=== PATIENT | female | born 1990 | race Caucasian/White ===

== ENCOUNTER 2019-01-05 17:13 | Emergency (ER) | payer MEDICAID ==
[~2019-01-05] VITALS: Ht 157.5 cm; Wt 54.4 kg
[2019-01-05 17:20] VITALS: BP 153/89
--- NOTE | 2019-01-05 17:55 | PHYS DOC ---
Past Medical History Past Medical History: No Pertinent History Past Surgical History: No Surgical History Alcohol Use: Occasionally Drug Use: Marijuana, Phencyclidine Adult General Chief Complaint Chief Complaint: DRUG ABUSE HPI HPI 28-year-old female presents to ER via EMS from her work place following an episode where she had altered mental status per staff. EMS had denied any altered MS or uncontrollable/agitated/anxious behavior. On arrival patient is A&Ox3. Reports she had smoked PCP just prior to altered mental status. She states she has done this in the past. She is denying headache, dizziness, chest pain, or palpitations. Patient reports she is smoking a PCP or recreationally and denies any suicidal ideations. Patient denies any other illicit drug use or alcohol use. Patient is calm and cooperative. Review of Systems Review of Systems Constitutional: Denies fatigue Eyes: Denies change in visual acuity, redness, or eye pain [] HENT: Denies nasal congestion or sore throat [] Respiratory: Denies cough or shortness of breath [] Cardiovascular: Denies CP/palpitations/chest tightness GI: Denies abdominal pain, nausea, vomiting : Denies dysuria or hematuria [] Musculoskeletal: Denies back/neck pain or joint pain [] Integument: Denies rash or skin lesions [] Neurologic: Denies headache, focal weakness or sensory changes. Denies dizziness Psych: Denies anxiety/depression/SI or hallucinations. Reports she uses illicit drugs recreationally and denies use in attempts of self harm/depression All other systems were reviewed and found to be within normal limits, except as documented in this note. Allergies Allergies Allergies Coded Allergies Type Severity Reaction Last Updated Verified No Known Drug Allergies 01/05/19 No Physical Exam Physical Exam Constitutional: Well developed, well nourished, no acute distress, non-toxic appearance. Clear speech. Answering questions appropriately. Cooperative/calm HENT: Normocephalic, atraumatic, oropharynx moist, no oral exudates, nose normal. [] Eyes: PERRLA, conjunctiva normal, no discharge. [] Neck: Normal range of motion, no tenderness, supple, no stridor. [] Cardiovascular: Heart rate regular rhythm, no murmur [] Lungs & Thorax: Bilateral breath sounds clear to auscultation- resp. equal/no nlabored Abdomen: Bowel sounds normal, soft, no tenderness, no pulsatile masses. [] Skin: Warm, dry, no erythema, no rash. [] Back: No tenderness, no CVA tenderness. [] Extremities: No tenderness, no cyanosis, no clubbing, ROM intact, no edema. [] Neurologic: Alert and oriented X 3, normal motor function, normal sensory function, no focal deficits noted. [] Psychologic: Affect normal, judgement normal, mood normal. Denies SI. Current Patient Data Vital Signs Vital Signs Date Time Temp Pulse Resp B/P (MAP) Pulse Ox O2 Delivery O2 Flow Rate FiO2 01/05/19 17:20 99.0 107 20 153/89 (110) 97 Room Air 99.0 EKG EKG [] Radiology/Procedures Radiology/Procedures [] Course & Med Decision Making Course & Med Decision Making Pt was brought to ER as staff at her work place reported pt had altered MS. Pt on arrival was A&Ox3 denying any complaints. She reported she had smoked PCP prior to episode where her co-workers felt she was altered. She denies any SI/self harm- reporting use of illicit drugs recreationally. She was monitored in the ER and provided with food/drinks. Pt had no complaints and so no tests were done. Discussed drug cessation and outpt tx programs. Pt had called her boss and he is picking pt up as she has been strongly advised not to drive and to avoid further drug use. Discussed discharge instructions w/pt and education provided on s&s to return to ER for. Pt had steady unassisted gait during discussion and was in no visible distress. Pt had no change in her mental status and has been calm/cooperative. Dragon Disclaimer Dragon Disclaimer This electronic medical record was generated, in whole or in part, using a voice recognition dictation system. Departure Departure Referrals: NO PCP (PCP) LOUIS PINZON APRN Jan 05, 2019 17:55
== END 2019-01-05 18:05 | disposition left against medical advice (07) ==
LOC: ER 17:13
DX: R41.82 Altered mental status, unspecified (principal); F16.10 Hallucinogen abuse, uncomplicated; F12.10 Cannabis abuse, uncomplicated
CPT/HCPCS: 99281; 99283

== ENCOUNTER 2020-02-18 16:40 | Emergency (ER) | payer MEDICAID ==
[~2020-02-18] VITALS: Ht 157.5 cm; Wt 50.0 kg
[2020-02-18 17:23] LABS: BASO # 0.1 x10^3/uL (0.0-0.2); BASO % 1 % (0-3); EOS % 0 % (0-3); HEMATOCRIT 43.1 % (36.0-47.0); HEMOGLOBIN 14.7 g/dL (12.0-15.5); LYMPH # 2.8 x10^3/uL (1.0-4.8); LYMPH % 21 % (24-48); MEAN CORPUSCULAR HEMOGLOBIN 33 pg (25-35); MEAN CORPUSCULAR HGB CONC 34 g/dL (31-37); MEAN CORPUSCULAR VOLUME 98 fL (79-100); MONO # 0.9 x10^3/uL (0.0-1.1); MONO % 6 % (0-9); NEUT # 9.7 x10^3/uL (1.8-7.7); NEUT % 72 % (31-73); PLATELET COUNT 296 x10^3/uL (140-400); RED BLOOD COUNT 4.41 x10^6/uL (3.50-5.40); RED CELL DISTRIBUTION WIDTH 13.6 % (11.5-14.5); WHITE BLOOD COUNT 13.6 x10^3/uL (4.0-11.0)
[2020-02-18 17:24] LABS: BILIRUBIN,URINE NEGATIVE (NEG); CLARITY,URINE CLOUDY; COLOR,URINE AMBER; NITRITE,URINE POSITIVE (NEG); PH,URINE 5.5 (<5.0-8.0); PROTEIN,URINE NEGATIVE (NEG-TRACE); UROBILINOGEN,URINE 0.2 mg/dL (0.2 mg/dL)
[2020-02-18 17:33] LABS: PROTHROMBIN TIME PATIENT 13.1 SEC (11.7-14.0)
[2020-02-18 17:39] LABS: BARBITURATES NEG (NEG); BENZODIAZEPINES NEG (NEG); CANNABINOIDS NEG (NEG); COCAINE POS (NEG); METHADONE NEG (NEG); OPIATES NEG (NEG); PHENCYCLIDINE POS (NEG)
[2020-02-18 17:40] LABS: BACTERIA,URINE MANY /HPF (0-FEW); RBC,URINE 0 /HPF (0-2); SQUAMOUS EPITHELIAL CELL,UR MANY /LPF; WBC,URINE OCC /HPF (0-4)
[2020-02-18 17:41] LABS: CALCIUM 8.4 mg/dL (8.5-10.1); CREATININE 1.2 mg/dL (0.6-1.0); GFR 52.4; POTASSIUM 3.3 mmol/L (3.5-5.1)
[2020-02-18 17:43] LABS: AMPHETAMINE/METHAMPHETAMINE NEG (NEG)
[2020-02-18 17:46] LABS: ALBUMIN 3.5 g/dL (3.4-5.0); DIRECT BILIRUBIN 0.1 mg/dL (0.0-0.2); MAGNESIUM 2.2 mg/dL (1.8-2.4); TOTAL BILIRUBIN 0.4 mg/dL (0.2-1.0); TOTAL PROTEIN 6.6 g/dL (6.4-8.2)
[2020-02-18 17:47] LABS: ACETAMIN < 2 mcg/ml (10-30); ETHANOL < 10 mg/dL (0-10); SALIC 7.7 mg/dL (2.8-20.0)
[2020-02-18] MEDS ORDERED: cefTRIAXone IV Push 1 GM VIAL. IVP ONE (18:00)
[2020-02-18 18:27] VITALS: BP 118/74
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
--- NOTE | 2020-02-22 05:07 | EKG ---
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
== END 2020-02-18 20:13 | disposition home or self-care (01) ==
LOC: ER 16:40
DX: F16.10 Hallucinogen abuse, uncomplicated (principal); F17.200 Nicotine dependence, unspecified, uncomplicated
CPT/HCPCS: 36415; 80048; 80076; 80307; 80329; 81001; 81025; 83735; 85025; 85610; 85730; 93005; 96374; 99284; G0480; J0696

== ENCOUNTER 2020-11-22 19:31 | Emergency (ER) | payer MEDICAID | END 2020-11-22 19:48 | disposition left against medical advice (07) | LOC: ER 19:31 | DX: K08.89 Other specified disorders of teeth and supporting structures (principal); Z53.21 Procedure and treatment not carried out due to patient leaving prior to being seen by health care provider ==